=== PATIENT | female | born 1950 | race Hispanic/Latino ===

== ENCOUNTER → 2022-08-13 | Outpatient (CLI) | payer MEDICARE ==
[~2022-08-13] MED LIST: REGADENOSON 0.4 MG/5 ML SYR IV ONE
== END ==
LOC: NM 08:16
PROVIDERS: ATTEND Internal Medicine Interventional Cardiology
DX: I20.8 Other forms of angina pectoris (principal)
CPT/HCPCS: 78452; 93017; A9502; J2785